=== PATIENT | male | born 1970 ===

== ENCOUNTER 2023-06-16 14:08 | Emergency (ER) | payer SELFPAY ==
[2023-06-16] MEDS ORDERED: OLANZapine 10 MG Vial IM ONE ×2 (14:27→15:41)
[2023-06-16 15:49] LABS: BASOPHILS PERCENT AUTO 0.6 % (0.0-1.0); EOSINOPHILS PERCENT AUTO 2.4 % (1.0-3.0); HEMATOCRIT 43.8 % (40.0-54.0); LYMPHOCYTES PERCENT AUTO 21.3 % (20.5-50.1); MEAN CORPUSCULAR HGB CONC 34.2 g/dL (33.0-35.0); MEAN CORPUSCULAR VOLUME 90.5 fL (80-100); MONOCYTES PERCENT AUTO 12.5 % (2-8); NEUTROPHILS PERCENT AUTO 63.2 % (42.2-75.2); PLATELET COUNT,PLT 266 10^3/uL (150-450); RED BLOOD CELL COUNT 4.84 10^6/uL (4.6-6.2); WHITE BLOOD CELL COUNT,WBC 8.4 10^3/uL (5.0-10.0)
[2023-06-16] MEDS ORDERED: Ketamine 500 mg/10 ML MDV IM ONE (15:49)
[2023-06-16] MEDS ORDERED: LORazepam 2 MG/ML SDV IM ONE (15:49)
[2023-06-16] MEDS ORDERED: LORazepam 2 MG/ML SDV ONE (15:49)
[2023-06-16 16:09] LABS: ALANINE AMINOTRANSFERASE,ALT 31 U/L (16-63); ALKALINE PHOSPHATASE 77 U/L (46-116); ANION GAP 15.6 mEq/L (7-13); ASPARTATE AMNIOTRANSFERASE,AST 31 U/L (15-37); CARBON DIOXIDE,CO2 24 mmol/L (21-32); CHLORIDE,CL 99 mmol/L (98-107); POTASSIUM,K 3.6 mmol/L (3.5-5.1); PROTEIN TOTAL,TP 7.3 g/dL (6.4-8.2); SODIUM,NA 135 mmol/L (136-145)
[2023-06-16 16:19] LABS: A/G RATIO 1.43; ALBUMIN 4.3 g/dL (3.4-5.0); CALCIUM 8.7 mg/dL (8.5-10.1); CREATININE 1.07 mg/dL (0.70-1.30); EST CRCL DRUG DOSING (CG) 95.42 mL/min; GLUCOSE RANDOM 83 mg/dL (70-99)
[2023-06-16 16:25] LABS: ACETAMINOPHEN 0 ug/mL (10-30 (Therapeutic)); ESTIMATED GFR 83 mL/min (>=60); ETHANOL BLOOD MEDICAL < 3 mg/dL (0)
[2023-06-16] MEDS ORDERED: Lactated Ringers 1,000 ML IV ONE (16:43)
[2023-06-16 16:46] LABS: APPEARANCE,URINE CLEAR (CLEAR); BILIRUBIN,URINE NEGATIVE (NEGATIVE); COLOR,URINE YELLOW (YELLOW); GLUCOSE,URINE NEGATIVE (NEGATIVE); KETONES,URINE NEGATIVE (NEGATIVE); LEUKOCYTE ESTERASE,URINE NEGATIVE (NEGATIVE); NITRITE,URINE NEGATIVE (NEGATIVE); OCCULT BLOOD,URINE NEGATIVE (NEGATIVE); PROTEIN,URINE NEGATIVE (NEGATIVE); UROBILINOGEN,URINE 0.2 mg/dL (0.2-1.0)
[2023-06-16 16:54] LABS: AMPHETAMINES,URINE NEGATIVE (NEGATIVE); BARBITURATES,URINE NEGATIVE (NEGATIVE); BENZODIAZEPINE,URINE NEGATIVE (NEGATIVE); MDMA (ECSTASY), URINE NEGATIVE (NEGATIVE); METHADONE,URINE NEGATIVE (NEGATIVE); METHAMPHETAMINES,URINE NEGATIVE (NEGATIVE); OPIATES,URINE NEGATIVE (NEGATIVE); OXYCODONE,URINE NEGATIVE (NEGATIVE); PHENCYCLIDINE,URINE NEGATIVE (NEGATIVE); TCA,URINE NEGATIVE (NEGATIVE)
[2023-06-16 17:07] LABS: BLOOD UREA NITROGEN,BUN 14 mg/dL (7-18)
[2023-06-16 17:08] LABS: BUN/CREATININE RATIO 13.1 (No establ ref range)
[2023-06-16] MEDS ORDERED: Morphine 4 MG/ML Syringe IVPUSH ONE (19:09)
[2023-06-16] MEDS ORDERED: traZODone 50 MG Tab PO ONE (22:43)
== END 2023-06-16 23:00 | disposition home or self-care (01) ==
LOC: DL.ED 14:08
DX: F31.9 Bipolar disorder, unspecified (principal); F17.210 Nicotine dependence, cigarettes, uncomplicated
CPT/HCPCS: 36415; 80053; 80143; 80179; 80305; 80307; 81003; 85025; 96372; 99284; A9270; C1758; J2060; J2405; J3490